=== PATIENT | female | born 1980 | race Caucasian/White ===

== ENCOUNTER 2017-12-03 13:26 | Emergency (ER) | payer MEDICARE, MEDICAID ==
--- NOTE | 2017-12-03 14:41 | ED Physician Documentation ---
PD HPI UPPER EXT INJURY - Stated complaint Stated Complaint: R THUMB LAC - Chief complaint Chief Complaint: Ext Problem - History obtained from History obtained from: Patient - History of Present Illness Location: Right, Finger (thumb) Where injury occurred: Home Timing - onset: Today Timing - details: Abrupt onset (using spiralizer cutter that is used for vegetables and was cleaning it when blade cut her thumb. It bled right away and so she applied pressure and bandaged it, and her Mom brought her here.) Review of Systems Constitutional: denies: Fever, Chills Neurologic: denies: Focal weakness, Numbness PD PAST MEDICAL HISTORY - Past Medical History Past Medical History: Yes Neuro: None, Other (some developmental delay. ) Endocrine/Autoimmune: None Musculoskeletal: None - Past Surgical History Past Surgical History: No - Present Medications Home Medications: Ambulatory Orders Medication Instructions Recorded Confirmed Fenofibrate [Tricor] 48 mg QPM 01/21/14 01/21/14 Fexofenadine [Jenny] 01/21/14 01/21/14 Phosphorus #1 [K-Phos Neutral 250 mg PO BID #10 tablet 01/21/14 Tablet] - Allergies Allergies/Adverse Reactions: Allergies Allergy/AdvReac Type Severity Reaction Status Date / Time No Known Drug Allergies Allergy Verified 01/21/14 20:14 - Social History Does the pt smoke?: No Smoking Status: Never smoker Does the pt drink ETOH?: No PD ED PE NORMAL - Vitals Vital signs reviewed: Yes - General General: Alert and oriented X 3, No acute distress, Well developed/nourished - HEENT HEENT: Atraumatic - Cardiac Cardiac: RRR, No murmur - Respiratory Respiratory: Clear bilaterally - Extremities Extremities: Other (right thumb with 3 mm wide by 1 cm long skin avulsion partial thickness with small vessel oozing to k) Results - Vitals Vitals: Oxygen O2 Source Room air PD MEDICAL DECISION MAKING - ED course Complexity details: considered differential (just partial thickness small avulsion. No sutures needed. ), d/w patient Departure - Departure Disposition: 01 Home, Self Care Clinical Impression: Skin avulsion Condition: Stable Record reviewed to determine appropriate education?: Yes Instructions: ED Avulsion Dermal Follow-Up: Hannah Thomas NP [Primary Care Provider] - Comments: Leave the initial bandage on for a day if you can or at least until bedtime tonight. The missing skin will feel back and his skin over a week or 2. Clean the wound with soap and water starting tomorrow. Apply topical ointment. Recheck if signs of infection. Tylenol or ibuprofen if needed for pains. Discharge Date/Time: 12/03/17 15:20
[2017-12-03] MEDS ORDERED: ACETAMINOPHEN 325 MG TABLET PO STA (15:10)
[2017-12-03 15:15] VITALS: BP 119/80
== END 2017-12-03 15:20 | disposition home or self-care (01) ==
LOC: ED 13:26
DX: S61.001A Unspecified open wound of right thumb without damage to nail, initial encounter (principal); W26.8XXA Contact with other sharp object(s), not elsewhere classified, initial encounter; Y93.G1 Activity, food preparation and clean up; Y92.009 Unspecified place in unspecified non-institutional (private) residence as the place of occurrence of the external cause
CPT/HCPCS: 99282; 99283; A9270